=== PATIENT | male | born 1995 | race Caucasian/White ===

== ENCOUNTER 2017-01-04 17:46 | Emergency (ER) | payer SELFPAY ==
[~2017-01-04] VITALS: Ht 180.3 cm; Wt 95.0 kg
[2017-01-04] MEDS ORDERED: METOCLOPRAMIDE HCL 10MG/2ML VIAL IV ONE (18:15)
[2017-01-04] MEDS ORDERED: SODIUM CHLORIDE 0.9% 1,000 ML IV ONE (18:15)
[2017-01-04] MEDS ORDERED: DIPHENHYDRAMINE 50MG/ML VIAL IV ONE (18:15)
[2017-01-04] MEDS ORDERED: KETOROLAC 30MG/ML VIAL IV ONE (19:15)
[2017-01-04 20:23] LABS: CLARITY URINE CLEAR (CLEAR); COLOR URINE YELLOW (YELLOW); GLUCOSE URINE NEGATIVE (NEGATIVE); KETONES URINE NEGATIVE (NEGATIVE); LEUKOCYTE ESTERASE URINE TRACE (NEGATIVE); NITRITE URINE NEGATIVE (NEGATIVE); OCCULT BLOOD URINE NEGATIVE (NEGATIVE); PH URINE 6.5 (4.5-8.0); PROTEIN URINE NEGATIVE (NEGATIVE); SPECIFIC GRAVITY URINE 1.021 (1.005-1.030)
[2017-01-04 20:47] LABS: BACTERIA URINE 1+; RBC URINE 0-2 /hpf (0-2); SQUAMOUS EPITHELIAL CELL URINE FEW /lpf (RARE/1+); WBC URINE 0-2 /hpf (0-2)
[2017-01-04 21:01] VITALS: BP 110/72
== END 2017-01-04 21:04 | disposition home or self-care (01) ==
LOC: ER 19:22
DX: S06.0X9A Concussion with loss of consciousness of unspecified duration, initial encounter (principal); F17.200 Nicotine dependence, unspecified, uncomplicated; F12.10 Cannabis abuse, uncomplicated; Z90.49 Acquired absence of other specified parts of digestive tract; V49.9XXA Car occupant (driver) (passenger) injured in unspecified traffic accident, initial encounter; Y93.89 Activity, other specified; Y92.89 Other specified places as the place of occurrence of the external cause; Y99.8 Other external cause status
CPT/HCPCS: 70450; 81001; 96361; 96374; 96375; 99285; J1200; J1885; J2765; J7030; Z7610

== ENCOUNTER 2019-05-02 19:19 | Emergency (ER) | payer MEDICAID ==
[~2019-05-02] VITALS: Ht 172.7 cm; Wt 82.0 kg
[2019-05-02] MEDS: KETOROLAC 60MG/2ML VIAL IM STA (23:15)
[2019-05-02] MEDS: ONDANSETRON 4MG ODT PO STA (23:15)
[2019-05-02 23:38] LABS: HEMATOCRIT. 45.4 % (42.0-52.0); HEMOGLOBIN. 15.5 g/dL (14.0-18.0); MEAN CORPUSCULAR HEMOGLOBIN 30.6 pg (28.0-32.0); MEAN CORPUSCULAR VOLUME 89.4 fL (80.0-94.0); MEAN PLATELET VOLUME 8.7 fl (7.4-10.4); PLATELET 287 x1000/uL (130-400); RED BLOOD CELL COUNT 5.08 mill/uL (4.7-6.1)
[2019-05-02 23:42] LABS: CHLORIDE 104 mEq/L (98-107)
[2019-05-02 23:47] LABS: ETHANOL BLOOD < 10 mg/dL
[2019-05-02 23:59] LABS: CLARITY URINE TURBID (CLEAR); COLOR URINE YELLOW (YELLOW); KETONES URINE NEGATIVE (NEGATIVE); LEUKOCYTE ESTERASE URINE TRACE (NEGATIVE); NITRITE URINE NEGATIVE (NEGATIVE); OCCULT BLOOD URINE NEGATIVE (NEGATIVE); PH URINE 7.5 (4.5-8.0); PROTEIN URINE NEGATIVE (NEGATIVE); SPECIFIC GRAVITY URINE 1.023 (1.005-1.030); UROBILINOGEN URINE 0.2 E.U./dL (0.2-1.0)
[2019-05-03] MEDS: HALOPERIDOL LACTATE 5MG/ML VIAL IM ONE (00:30)
[2019-05-03 01:15] LABS: ATYPICAL LYMPHOCYTES 1; PLATELET ESTIMATE NORMAL
[2019-05-03 02:28] VITALS: BP 125/65
== END 2019-05-03 02:30 | disposition home or self-care (01) ==
LOC: ER 19:19
DX: F12.10 Cannabis abuse, uncomplicated (principal); R10.12 Left upper quadrant pain; R11.2 Nausea with vomiting, unspecified; Z90.49 Acquired absence of other specified parts of digestive tract
CPT/HCPCS: 36415; 80053; 80320; 81003; 83690; 85025; 96372; 99283; J1630; J1885; Q0162; G0480

== ENCOUNTER 2019-07-20 20:12 | Emergency (ER) | payer MEDICAID, OTHER ==
[~2019-07-20] VITALS: Ht 180.3 cm; Wt 99.0 kg
[2019-07-20] MEDS ORDERED: CEPHALEXIN 250MG CAPSULE PO ONE (20:30)
[2019-07-20] MEDS ORDERED: HYDROCODONE/ACETAMINOPHEN 5/325MG TABLET PO ONE (20:30)
[2019-07-20 23:38] VITALS: BP 118/85
== END 2019-07-20 23:46 | disposition home or self-care (01) ==
LOC: ER 20:42
DX: S01.01XA Laceration without foreign body of scalp, initial encounter (principal); S01.412A Laceration without foreign body of left cheek and temporomandibular area, initial encounter; F12.10 Cannabis abuse, uncomplicated; Y00.XXXA Assault by blunt object, initial encounter; Y93.89 Activity, other specified; Y92.488 Other paved roadways as the place of occurrence of the external cause
CPT/HCPCS: 12011; 70486; 73130; 99284

== ENCOUNTER 2023-06-04 03:00 | Emergency (ER) | payer MEDICAID, OTHER ==
[~2023-06-04] VITALS: Ht 180.3 cm; Wt 113.0 kg
[2023-06-04 04:01] VITALS: BP 128/75; PULSE 109; RESP 20; TEMP 99.1; O2SAT 99
== END 2023-06-04 06:24 | disposition left against medical advice (07) ==
LOC: ER 03:00
DX: Z53.21 Procedure and treatment not carried out due to patient leaving prior to being seen by health care provider (principal)
CPT/HCPCS: 99281

== ENCOUNTER 2025-05-24 09:59 | Emergency (ER) | payer MEDICAID, OTHER ==
[~2025-05-24] VITALS: Ht 167.6 cm; Wt 85.0 kg
[2025-05-24 10:05] VITALS: BP 121/83; PULSE 92; RESP 16; TEMP 36.7; O2SAT 98
[2025-05-24] MEDS: ONDANSETRON 4MG ODT PO ONE (10:46)
[2025-05-24 10:47] VITALS: TEMP 98.1
[2025-05-24] MEDS: ACETAMINOPHEN 325MG TABLET PO ONE (10:47)
[2025-05-24 10:57] LABS: BASOPHILS % 0.2 % (0.0-2.0); EOSINOPHILS % 0.7 % (0.0-5.0); HEMATOCRIT. 43.9 % (42.0-52.0); HEMOGLOBIN. 14.8 g/dL (14.0-18.0); LYMPHOCYTES % 20.6 % (20.0-50.0); MEAN PLATELET VOLUME 8.1 fl (7.4-10.4); MONOCYTES % 7.5 % (2.0-8.0); NEUTROPHILS % 71.0 % (40.0-76.0); PLATELET 281 x1000/uL (130-400); RED BLOOD CELL COUNT 4.92 mill/uL (4.7-6.1); RED CELL DISTRIBUTION WIDTH 13.9 % (11.6-14.6)
[2025-05-24 11:14] LABS: TROPONIN I HIGH SENSITIVITY < 4 ng/L (3.0-53)
[2025-05-24 11:16] LABS: CREATININE 0.8 mg/dL (0.6-1.3); UREA NITROGEN BLOOD 10 mg/dL (9-23)
[2025-05-24 11:18] LABS: ASPARTATE AMINOTRANSFERASE 16 IU/L (<34); BILIRUBIN TOTAL 0.4 mg/dL (0.1-1.0); PROTEIN TOTAL 6.7 g/dL (6.0-8.3)
== END 2025-05-24 12:05 ==
LOC: ER 09:59
DX: R42 Dizziness and giddiness (principal); R07.89 Other chest pain; F15.90 Other stimulant use, unspecified, uncomplicated; F12.90 Cannabis use, unspecified, uncomplicated; Z65.3 Problems related to other legal circumstances
CPT/HCPCS: 99285; 70450; 71045; 80053; 83690; 85025; 84484; 36415; 93005; Q0162